=== PATIENT | male | born 1990 | race Caucasian/White ===

== ENCOUNTER 2018-11-29 17:47 | Emergency (ER) | payer MEDICAID, OTHER ==
[~2018-11-29] VITALS: Ht 162.6 cm; Wt 82.8 kg
[2018-11-29 17:55] VITALS: BP 124/70
--- NOTE | 2018-11-29 17:56 | NUR ---
PT AMBULATES TO BED 6
--- NOTE | 2018-11-29 18:15 | NUR ---
PT PRESENTS TO ED W/ C/O GENERALIZED BODY ITCH SINCE TUESDAY. DENIES CHEST PAIN, SOB, RASH, NAUSEA OR VOMITING. REPORTS THE USE OF A NEW LOTION APPROX 2 WEEKS AGO. VSS. ERMD TO EVALUATE PT.
[2018-11-29] MEDS ORDERED: DEXAMETHASONE 10 MG/ML VIAL IM ONE (19:00)
[2018-11-29 19:14] VITALS: BP 122/72
--- NOTE | 2018-11-29 19:15 | NUR ---
Patient discharged with v/s stable. Written and verbal after care instructions given and explained. Patient alert, oriented and verbalized understanding of instructions. Ambulatory with steady gait. All questions addressed prior to discharge. ID band removed. Patient advised to follow up with PMD. Rx of Benadryl and atarax given. Patient educated on indication of medication including possible reaction and side effects. Opportunity to ask questions provided and answered.
== END 2018-11-29 19:14 | disposition home or self-care (01) ==
LOC: MED 17:47
DX: L30.9 Dermatitis, unspecified (principal); I10 Essential (primary) hypertension
CPT/HCPCS: 96372; 99283; J1100

== ENCOUNTER 2018-12-28 12:55 | Emergency (ER) | payer MEDICAID ==
[~2018-12-28] VITALS: Ht 162.6 cm; Wt 81.6 kg
[2018-12-28 12:58] VITALS: BP 123/94
[2018-12-28 17:06] VITALS: BP 119/88
== END 2018-12-28 17:06 | disposition home or self-care (01) ==
LOC: MED 12:55
DX: F41.9 Anxiety disorder, unspecified (principal); R42 Dizziness and giddiness; I10 Essential (primary) hypertension
CPT/HCPCS: 71046; 99284

== ENCOUNTER 2020-01-29 14:14 | Emergency (ER) | payer MEDICAID ==
[~2020-01-29] VITALS: Ht 160 cm; Wt 83.5 kg
[2020-01-29 14:18] VITALS: BP 138/91
== END 2020-01-29 16:00 | disposition home or self-care (01) ==
LOC: MED 14:14
DX: U07.1 COVID-19 (principal); I10 Essential (primary) hypertension
CPT/HCPCS: 99283; U0003